=== PATIENT | female | born 1970 | race Hispanic/Latino ===

== ENCOUNTER 2016-03-12 05:40 | Inpatient (IN) | payer OTHER ==
[2016-03-10 12:17] LABS: Basophils % (Auto) 0.6 % (0.0-1.8); Eosinophils % (Auto) 1.9 % (0.0-4.3); Hematocrit 41.8 % (30.3-42.9); Hemoglobin 14.2 gm/dl (10.1-14.3); Mean Corpuscular HGB Conc 34 % (30-34); Mean Corpuscular Hemoglobin 33 pg (28-32); Mean Corpuscular Volume 97 fl (79-97); Platelet Count 153 K/mm3 (140-440); Red Blood Count 4.29 M/mm3 (3.65-5.03); White Blood Count 8.8 K/mm3 (4.5-11.0)
--- NOTE | 2016-03-10 12:29 | Anesthesia Consultation ---
Anesthesia Consult and Med Hx Date of service: 03/10/16 - Airway Anesthetic Teeth Evaluation: Good ROM Head & Neck: Adequate Mental/Hyoid Distance: Adequate Mallampati Class: Class III Intubation Access Assessment: Probably Good - Pulmonary Exam CTA: Yes - Cardiac Exam Cardiac Exam: RRR - Pre-Operative Health Status ASA Pre-Surgery Classification: ASA2 Proposed Anesthetic Plan: General Nerve Block: TAP - Pulmonary Hx Smoking: Yes SOB: Yes (occas SOB) - Cardiovascular System Hx Hypertension: Yes (x 4 mo) - Central Nervous System Hx Psychiatric Problems: No - Hematic Hx Anemia: Yes - Other Systems Hx Alcohol Use: Yes (occas) Hx Cancer: No Hx Obesity: Yes - Additional Comments Anesthesia Medical History Comments: NAC
[2016-03-10 12:31] LABS: Anion Gap 16 mmol/L; Blood Urea Nitrogen 11 mg/dL (7-17); Calcium 9.3 mg/dL (8.4-10.2); Carbon Dioxide 26 mmol/L (22-30); Chloride 95.7 mmol/L (98-107); Glucose 115 mg/dL (65-100); Potassium 3.9 mmol/L (3.6-5.0); Sodium 134 mmol/L (137-145)
--- NOTE | 2016-03-11 22:42 | History and Physical Report ---
History of Present Illness Date of examination: 03/12/16 Chief complaint: They told me I have fibroids History of present illness: Ms Purcell is a 45 year old who presents for definitive therapy of her fibroid uterus. She was told the she had fibroids via ultrasound. She also has complaints of leakage of urine and is interested in having a tvt. 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) Past Surgical History: Other (hysteroscopy) Social history: , smoking Family history: other (muscular dystrophy) Medications and Allergies Allergies Allergy/AdvReac Type Severity Reaction Status Date / Time amoxicillin Allergy Nausea Verified 03/07/16 09:27 ampicillin Allergy Unknown Verified 03/12/16 22:10 Home Medications Medication Instructions Recorded Confirmed Last Taken Type Lisinopril/Hydrochlorothiazide 1 tab PO QDAY 03/07/16 03/12/16 03/12/16 04:45 History [Zestoretic 20-25 mg] Docusate Sodium [Colace] 100 mg PO BID PRN #60 capsule 03/13/16 Unknown Rx Ibuprofen [Motrin 800 MG tab] 800 mg PO Q8HR PRN #40 tablet 03/13/16 Unknown Rx oxyCODONE /ACETAMINOPHEN [Percocet 2 tab PO Q4H PRN #40 tablet 03/13/16 Unknown Rx 5/325 mg] Active Meds: Active Medications Celecoxib (Celebrex) 200 mg PO PREOP NR Stop: 03/12/16 23:01 Famotidine (Pepcid) 20 mg PO PREOP NR Stop: 03/12/16 23:00 Gabapentin (Neurontin) 600 mg PO PREOP NR Stop: 03/12/16 23:01 Sodium Chloride (Nacl 0.9% 1000 Ml) 1,000 mls @ 100 mls/hr IV DIRECT FACUNDO Midazolam HCl (Versed) 2 mg IV PREOP NR Stop: 03/12/16 23:00 Review of Systems - Constitutional weight loss - Genitourinary Genitourinary: pelvic pain, stress incontinence Menstruation: period heavy Exam Vital Signs Temp Pulse Resp BP 97.6 F 84 14 126/76 03/10/16 11:00 03/10/16 11:00 03/10/16 11:00 03/10/16 11:00 - General physical appearance Positive: well developed, well nourished, no distress - Neck Positive: no masses, no bruits, trachea midline, no venous distension - Respiratory Positive: normal expansion, normal respiratory effort, clear to auscultation - Cardiovascular Rhythm: regular Heart Sounds: Present: S1 & S2. Absent: rub, click - Extremities Extremities: no ischemia, No edema - Breasts Breasts: deferred - Abdomen Abdomen: Present: soft, bowel sounds normal. Absent: tender, distended Hernia: none - Genitourinary Female Genitourinary: other (enlarged 16 week size uterus) Results - Labs 03/10/16 11:30 03/10/16 11:30 Assessment and Plan 45 year old female with enlarged fibroid uterus. Patient consented for LUIS ALFREDO and TVT to treat stress incontinence.
[~2016-03-12 05:40] MED LIST: CLEOCIN IV ONE
[2016-03-12] MEDS ORDERED: NACL BACTERIOSTATIC INFILTRATI ONE (06:32)
[2016-03-12] MEDS ORDERED: CLEOCIN 600 MG/50 mL 50 ML IV SCH (06:55)
[2016-03-12] MEDS ORDERED: VERSED IV NR (07:00)
[2016-03-12] MEDS ORDERED: NEURONTIN PO NR (07:00)
[2016-03-12] MEDS ORDERED: PEPCID PO NR (07:00)
[2016-03-12] MEDS ORDERED: NACL 0.9% 1000 ML 1,000 ML IV SCH (07:00)
[2016-03-12] MEDS ORDERED: DILAUDID ONE (07:18)
[2016-03-12] MEDS ORDERED: DIPRIVAN 10 MG/ML IV ONE (07:18)
[2016-03-12] MEDS ORDERED: SUBLIMAZE ONE (07:25)
[2016-03-12] MEDS ORDERED: MARCAINE-EPI 0.5%-1:200,000 INFILTRATI ONE ×2 (07:26)
[2016-03-12] MEDS ORDERED: XYLOCAINE 1% 20 mL ONE (07:29)
[2016-03-12] MEDS ORDERED: ROBINUL ONE ×2 (08:05→09:15)
[2016-03-12] MEDS ORDERED: VERSED ONE (08:25)
[2016-03-12] MEDS ORDERED: ZEMURON IV ONE ×2 (08:45→09:18)
[2016-03-12] MEDS ORDERED: NACL 0.9% IR ONE (08:45)
[2016-03-12] MEDS ORDERED: ZOFRAN ONE (08:45)
[2016-03-12] MEDS ORDERED: DECADRON ONE (08:45)
[2016-03-12] MEDS ORDERED: MARCAINE-EPI 0.25%-1:200,000 INFILTRATI ONE (08:46)
[2016-03-12] MEDS ORDERED: TORADOL ONE (09:15)
[2016-03-12] MEDS ORDERED: BLOXIVERZ ONE (09:15)
[2016-03-12] MEDS ORDERED: WATER FOR IRRIG STERILE IR ONE (10:05)
[2016-03-12] MEDS ORDERED: LACTATED RINGERS 1,000 ML ONE ×2 (10:46)
[2016-03-12] MEDS ORDERED: DILAUDID PCA 6MG/30ML IV ONE (11:19)
[2016-03-12] MEDS ORDERED: D5LR 1,000 ML IV ONE (11:19)
--- NOTE | 2016-03-12 13:13 | Anesthesia Day of Surgery ---
Anesthesia Day of Surgery - Day of Surgery Patient Examined: Yes Patient H&P Reviewed: Yes Patient is NPO: Yes
--- NOTE | 2016-03-12 13:13 | Post Anesthesia Evaluation ---
- Post Anesthesia Evaluation Patient Participated: Yes Airway Patent: Yes Stable Respiratory Function: Yes Nausea/Vomiting: No Temp > 96.8F: Yes Pain Manageable: Yes Adequeate Hydration: Yes Anesthesia Complications: No Block Receding Appropriately: Yes Patient on Ventilator: No
--- NOTE | 2016-03-12 14:08 | Admit Criteria Form ---
Admission Criteria Documentation: AMBULATORY SURGERY EXCEPTION CRITERIA Ambulatory Surgery Exception Criteria ( Place 'X' for any and all applicable criteria): Surgery or procedure performed on ambulatory basis may require inpatient stay for[A] ANY ONE of the following(1)(2)(3)(4)(5)(6)(7)(8)(9): [X] I. A preoperative situation, condition, or finding that warrants inpatient stay as indicated by ANY ONE of the following: [] a) Inpatient care needed because of severity of a disease or condition rather than the surgery (eg, severe cardiac or respiratory disease, severe infection) (15) (16 ) (17) (18) [] b) Emergent procedure (eg, angioplasty for acute ischemia)(19) [X] c) Complex surgical approach or situation as indicated by ANY ONE of the following(3): [X] i) Open approach needed instead of usual endoscopic, transcatheter, or other less invasive procedure [] ii) Difficult approach because of previous operation [] iii) Airway monitoring required after open neck procedures(20)(21) [] iv) Large mass requiring unusually extensive dissection [] v) Additional complicating feature requiring inpatient care (eg, drain management)(22(23): [] d) Major surgery in a pt with high anesthetic risk as indicated by ANY ONE of the following (2)(3)(5)(7)(8): [] i) ASA risk class III or higher (severe systemic disease impairing function) [D] [] ii) Advanced age (eg, older than 85 years)(14)(24) [] iii) Symptomatic heart failure(25) [] iv) Symptomatic asthma or COPD(8)(21) [] v) Morbid obesity with hemodynamic or respiratory problems(20)( 21)(26)(27) [] vi) Obstructive sleep apnea(20)(21) [] vii) Former premature infants who are younger than 60 weeks [] viii) High risk for severe postoperative abnormalities (eg, severe postoperative hypocalcemia after parathyroidectomy for severe hyperparathyroidism)(27)( 28) [] ix) Unstable angina(25) [] e) Drug-related risk requiring inpatient stay as indicated by ANY ONE of the following(5)(10)(14)(32)(33) [] i) Procedure requires discontinuing drugs or other therapy (eg , antiarrhythmic medication, antiseizure medication), which necessitates inpatient observation or treatment.(18)(31) [] ii) Major surgery and high risk drug use as indicated by ANY ONE of the following: [] 1) Active abuse of cocaine or similar drug [] 2) Monoamine oxidase inhibitor use [] 3) Other drug identified as posing risk [] f) Inadequate outpatient care situation as indicated by ANY ONE of the following(5)(10)(14)(32)(33) [] i) Patient lives remote from medical facility and procedure has urgent complication potential, and temporary nearby residence cannot be arranged [] ii) Patient will have postprocedure incapacitation and inadequate assistance at home, or alternative level of care cannot be arranged. [] iii) Patient will have long general anesthesia or procedure side effect resolution time, and competent person to stay with patient on first postoperative night at home or alternative level of care cannot be arranged. []iv) Other inadequate outpatient situation that cannot be handled by other means [] II. A perioperative event, condition, or finding that warrants inpatient stay as indicated by ANY ONE of the following (1)(2)(3): [] a) Inadequate physiologic recovery: cardiovascular, respiratory, or hemodynamic status not normal or near preoperative baseline(18) [] b) Hemodynamic instability [] c) Patient not alert with near normal or baseline mental status [] d) Temperature not normal or as expected and not appropriate for outpatient treatment of condition [] e) Ambulatory or appropriate activity level status not yet achieved post procedure [E](34)(35)(36) [] f) Operative site not appropriate (eg, unexpected or excessive drainage or bleeding) [] g) Postoperative effects not resolved or adequately managed (eg, significant pain or vomiting not appropriate for outpatient or next level of care)(10)(12) [] h) Complicating features requiring inpatient care as indicated by ANY ONE of the following(37): [] i) Severe complications of procedure (eg, bowel injury, airway compromise, vascular injury,severe hemorrhage) [] ii) Extensive (eg, dissection far beyond usual scope of procedure ) or prolonged (eg, 120 minutes beyond usual) surgery needed requiring inpatient postoperative care [] iii) Conversion to an open or complex procedure that requires inpatient care (eg, open vs laparoscopic cholecystectomy, abdominal vs vaginal hysterectomy)(38) [] iv) Comorbid condition or test result identified during or post procedure that requires inpatient care (7) [] v) Malignant hyperthermia(30) [] vi) Other complicating feature requiring inpatient care(22)(23) Inpatient stay may be needed until ALL of the following are present (1)(2)(3)(4) (5)(6)(10)(14)(33)(40): []a) Physiologic recovery: cardiovascular, respiratory, and hemodynamic status normal or near preoperative baseline []b) Hemodynamic stability []c) Patient alert, with near normal or baseline mental status []d) Temperature appropriate: patient afebrile or temperature appropriate for outpt treatment of condition []e) Activity level appropriate: ambulatory or appropriate activity level post procedure []f) Operative site appropriate as indicated by ALL of the following: []i) Site dry or with expected drainage []ii) Any blood noted is as expected for procedure. []g) Postoperative effects resolved or managed as indicated by ALL of the following: []i) Pain management appropriate for outpatient (or next level of) care(10) []ii) Minimal nausea and vomiting: if present, successfully treated with oral medication(12) []iii) Headache, dizziness, or drowsiness (if present) are mild. []h) Voiding status acceptable as indicated by ANY ONE of the following: []i) Voiding spontaneously []ii) No voiding but instructions given for follow-up in 6 to 8 hours []iii) Urinary catheter in place, and instructions given for follow-up []i) Complicating features requiring inpatient care manageable at a lower level of care(37) []j) Comorbid conditions manageable at a lower level of care(37) The original [employer] content created by [employer] has been revised. The portions of the content which have been revised are identified through the use of italic text or in bold, and [facility] [employer] has neither reviewed nor approved the modified material. All other unmodified content is copyright [employer]. Please see references footnoted in the original [employer] edition 2016 Admission Criteria Met: Yes
--- NOTE | 2016-03-12 14:37 | Operative Report ---
PREOPERATIVE DIAGNOSES: 1. Menorrhagia. 2. Fibroid uterus. 3. Stress incontinence. POSTOPERATIVE DIAGNOSES: 1. Menorrhagia. 2. Fibroid uterus. 3. Stress incontinence. PROCEDURES: 1. Total abdominal hysterectomy. 2. Transvaginal tape obturator approach. 3. Cystoscopy. SURGEON: Laura Ramos MD UNDERCOATER: Ambrosio Ramos. ANESTHESIA: General. ESTIMATED BLOOD LOSS: 200 mL. URINE OUTPUT: 200 mL clear at the end of the procedure. IV FLUIDS: 2100 mL. SPECIMENS: Very large fibroid uterus with cervix. COMPLICATIONS: None. DESCRIPTION OF PROCEDURE: The patient was taken to the OR with IV running in place. She was properly identified as herself. She was given general anesthesia without difficulty. She was then placed in dorsal supine position. She was then prepped and draped in normal sterile fashion. Attention was turned to the patient's abdomen. A Pfannenstiel incision was made with the scalpel and carried to the underlying fascia using scalpel and the Bovie. The fascia was incised in the midline and the fascial incision was extended bilaterally using the curved Ortiz scissors. The fascia was then dissected from the underlying rectus muscles using sharp and blunt dissection after being tented up with 2 Gertrude clamps, this was done superiorly and inferiorly. Once the muscles were identified, they were entered into bluntly. There were some mild diastasis of the muscles upon entering into the abdomen. The peritoneal cavity was then entered into bluntly using the surgeon's fingers and the uterus was easily identifiable as it was quite enlarged. The O'Jimbo-O'Sharif retractor was then placed into the incision. The bowel was then packed away with moist laparotomy sponges. The uterus was grasped at each cornua and tented upward. The round ligaments were identified bilaterally. They were grasped with Tate clamps. They were suture ligated and then cauterized using the LigaSure. Following this, the uteroovarian arteries were identified through the broad ligament. They also were cauterized and transected using the LigaSure. This was done bilaterally. The uterine arteries were then skeletonized bilaterally. They were then also cauterized and transected using the LigaSure device. At this point, due to the bulk of the uterus, the decision was made to amputate the upper portion of the uterus and handed off later to get the cervix. This was done using the scalpel and the uterus was handed off. Following this, the cervical stump was grasped with a tenaculum and tented upward. The uterosacral ligaments were then identified. They were cauterized and transected. Following this, we were at the level of the cervix. Two large right angle clamps were placed on each side of the cervix using the Ortiz scissors and the cervix was amputated from the vaginal cuff. Sutures of 0 Vicryl were placed at each angle as well as the olsvky-db-retwu suture in the middle of the vaginal cuff. Once this was done, the abdomen was copiously irrigated with warm normal saline for excellent hemostasis. At this point, all the instruments and laps were removed from the patient's abdomen and pelvis. The muscle reapproximated in the midline using individual sutures of 0 Vicryl. The fascia was closed in a running fashion using 0 Vicryl and the skin was closed in the subcuticular fashion with the assistance by this time, the transition to the second portion of the procedure had taken place. The patient was redraped and rescrubbed vaginally and her legs were placed into lithotomy position. At this point, the TVT was initiated with measuring areas in each thigh bilaterally. They were marked with a marking pen. The weighted speculum was placed in the patient's vagina. The tissue overlying the urethra was injected with 5 mL of 0.25% Marcaine and it was incised. The vagina was dissected off bilaterally to the level of the obturator foramen with the Metzenbaum scissors. This area was also injected with approximately 5 mL of 0.25% Marcaine on a spinal needle. Once at the level of obturator foramen, the guide was placed inside. The TVT was placed into the vagina and extruded on the inner thigh through the previously marked area. The trocar was removed. The mesh was pulled through and the attention was turned to the patient's opposite side. Similarly, the vagina was dissected, the obturator foramen was incised, the guidewire was placed and the TVT again placed into the canal. At this point, the Walter was removed. The bladder was retrograde filled with approximately 300 mL of normal saline. Following this time, the patient was placed in reverse Trendelenburg and pressure was placed on the patient's lower abdomen suprapubically to assess for any leakage with increased abdominal pressure and being noted was no leakage, the decision was made to remove the sheath from the mesh and the area over the urethra was oversewn with running suture of 2-0 Vicryl. The area on the inner thighs were covered with Dermabond. At this point, the catheter was reinserted. There was clear urine coming out. Following completion of the TVT, a cystoscopy was performed to assess the bladder integrity and was found to be completely intact. At this point, all instruments were removed from the patient. She was taken out of lithotomy position. She was awakened and taken to recovery in stable condition. The sponge, lap, needle, and instrument counts were correct x 2. JOB# [id number] PARMINDER/JASIEL RICO
[2016-03-12] MEDS ORDERED: CLEOCIN 600 MG/50 mL 600 MG/50 ML BAG IV SCH ×2 (15:00→23:00)
[2016-03-12] MEDS ORDERED: PERCOCET 5/325 PO PRN (22:22)
[2016-03-12] MEDS ORDERED: PHENERGAN PR PRN (22:23)
[2016-03-12] MEDS ORDERED: PHENERGAN PO PRN (22:23)
[2016-03-12] MEDS ORDERED: ZOFRAN IV PRN (22:24)
[2016-03-12] MEDS ORDERED: DULCOLAX PR PRN (22:26)
[2016-03-12] MEDS: D5LR 1,000 ML IV SCH (22:26)
[2016-03-12] MEDS ORDERED: REGLAN IV PRN (22:26)
[2016-03-12] MEDS ORDERED: MYLICON PO PRN (22:27)
[2016-03-12] MEDS ORDERED: SENOKOT S PO PRN (22:30)
[2016-03-12] MEDS ORDERED: BENADRYL PO PRN (22:31)
[2016-03-12] MEDS ORDERED: BENADRYL IV PRN (22:31)
[2016-03-12] MEDS ORDERED: DILAUDID PCA 6MG/30ML IV SCH (23:00)
[2016-03-13] MEDS: D5LR 1,000 ML IV SCH (05:23)
[2016-03-13] MEDS ORDERED: PERCOCET 5/325 PO PRN (11:00)
--- NOTE | 2016-03-13 12:39 | Progress Note ---
Subjective Date of service: 03/13/16 Interval history: 1st POD after hysterectomy Patient is relatively comfortable. Pain is mostly controlled with pain meds. Ambulated well. No nausea or vomiting. No anesthesia complications Objective - Constitutional Vitals: Vital Signs - 12hr 03/13/16 03/13/16 03/13/16 02:05 04:00 04:10 Temperature 98.0 F Pulse Rate [ 89 Left] Respiratory 18 18 20 Rate Blood Pressure 134/65 [Left Arm] 03/13/16 03/13/16 03/13/16 06:08 07:50 08:00 Temperature 98.5 F Pulse Rate [ 94 H Left] Respiratory 20 18 20 Rate Blood Pressure 138/60 [Left Arm] 03/13/16 10:00 Temperature Pulse Rate [ Left] Respiratory 18 Rate Blood Pressure [Left Arm] - Labs CBC & Chem 7: 03/10/16 11:30 03/10/16 11:30
--- NOTE | 2016-03-13 13:16 | Progress Note ---
Assessment and Plan POD 1 s/p LUIS ALFREDO with TVT. Doing well. Patient is ambulating and voiding well. Patient is passing flatus. Patient is requesting discharge on today. Subjective - Subjective Date of service: 03/13/16 Interval history: Ms Purcell is a 45 year old who presents for definitive therapy of her fibroid uterus. She was told the she had fibroids via ultrasound. She also has complaints of leakage of urine and is interested in having a tvt. Patient reports: appetite normal, voiding normally, pain well controlled, ambulating normally Objective - Vital Signs Latest vital signs: Vital Signs Temp Pulse Resp BP 03/13/16 10:00 18 03/13/16 08:00 20 03/13/16 07:50 98.5 F 94 H 18 138/60 03/13/16 06:08 20 03/13/16 04:10 98.0 F 89 20 134/65 03/13/16 04:00 18 03/13/16 02:05 18 03/13/16 00:28 20 03/13/16 00:00 99.0 F 100 H 18 123/67 03/12/16 22:17 18 03/12/16 20:00 98.8 F 96 H 20 147/66 03/12/16 19:50 20 03/12/16 13:35 98.9 F 90 20 156/73 Intake and Output 03/12/16 03/13/16 03/13/16 22:59 06:59 14:59 Intake Total 1000 1240 1225 Output Total 900 2700 600 Balance 100 -1460 625 Intake: IV 1000 1000 625 D5lr 1,000 ml @ 125 mls/ 500 hr IV DIRECT FACUNDO Rx#: [id number] D5lr 1,000 ml As IV .STK- 1000 1000 MED ONE Rx#:[id number] Right Forearm 125 Oral 240 480 Intake, Free Water 120 Output: Urine 900 2700 600 Indwelling Catheter 900 2700 600 Other: Total, Intake Amount 120 480 Total, Output Amount 900 1200 600 Voiding Method Indwelling Catheter - Exam Breasts: Present: deferred Cardiovascular: Present: Regular rate, Normal S1, Normal S2 Lungs: Present: Clear to auscultation, Normal air movement Abdomen: Present: normal appearance, soft, normal bowel sounds Extremities: Present: normal Deep Tendon Reflex Grade: Normal +2 Incision: Present: normal, dry, intact
--- NOTE | 2016-03-13 13:21 | Discharge Summary ---
Providers - Providers Date of Admission: 03/12/16 05:40 Date of discharge: 03/13/16 Attending physician: MARY JANE ENGLISH Hospitalization Reason for admission: other (fibroids, menorrhagia) Procedure: other (Total Abdominal Hysterectomy with TVT) Procedure details: See op report Incision: normal, dry, intact Discharge diagnosis: other Condition at discharge: Good Disposition: DISCHARGED TO HOME OR SELFCARE Plan - Discharge Medications Prescriptions: Docusate Sodium [Colace] 100 mg PO BID PRN #60 capsule PRN Reason: Constipation Ibuprofen [Motrin 800 MG tab] 800 mg PO Q8HR PRN #40 tablet PRN Reason: Pain oxyCODONE /ACETAMINOPHEN [Percocet 5/325 mg] 2 tab PO Q4H PRN #40 tablet PRN Reason: Pain, Moderate (4-6) - Provider Discharge Summary Activity: routine, no sex for 6 weeks, no heavy lifting 4 weeks, no strenuous exercise Diet: routine Instructions: routine Additional instructions: [] Smoking cessation referral if applicable(refer to patient education folder for contact #) [] Refer to [facility] Booklet Call your doctor immediately for: * Fever > 100.5 * Heavy vaginal bleeding ( >1 pad per hour) * Severe persistent headache * Shortness of breath * Reddened, hot, painful area to leg or breast * Drainage or odor from incision. * Keep incision clean and dry at all times and follow doctor's instructions regarding bathing/showering - Follow up plan Follow up: MARY JANE ENGLISH MD [Staff Physician] - 14 Days
[2016-03-13 13:26] VITALS: BP 136/60
--- NOTE | 2016-03-18 08:11 | Query- Abnormal Electrolytes ---
Malachi Carrasco Date:_03/18/16 Line Assembler/CDS:Sheeba/ Juan Kearney Phone#:_[phone] Exercise your independent professional judgment when responding to this query. Questions asked do not imply a particular answer is desired or expected. We greatly appreciate your clarification on this issue. Clinical Documentation States: 45 Y/O who presents for definitive therapy of her fibroid uterus. She also complains of leakage of urine and is interested in having a tvt. Clinical Findings Show: Sodium: 134 on 03/10/16 Can you please clarify whether you mean? [ ] Hyponatremia [ ] Hypokalemia [ ] Hypocalcemia [ ] Hypomagnesemia [ ] Hypernatremia [ ] Hyperkalemia [ ] Hypercalcemia [ ] Hypermagnesemia [ ] Sodium deficiency [ ] Potassium deficiency [ ] Hypochloremia [ ] Sodium excess [ ] Potassium excess [ ] Hyperchloremia [ ] Sodium overload [ ] Potassium overload [ ] Hypophosphatemia [ ] Hyperphosphatemia Acidosis; [ ] Respiratory [ ] Metabolic Alkalosis; [ ] Respiratory [ ] Metabolic [ ] Other: [ ] Comment/Explanation: Present on Admission: [x ] Yes (Y) [ ] Clinically undeterminable (W) [ ]No(N) Please also document response in your Progress Notes and/or Discharge Summary and indicate if the condition was present on admission. JACKY
== END 2016-03-13 14:00 | disposition home or self-care (01) | DRG 742 ==
LOC: 3A 05:40 → OB 15:02
PROVIDERS: ADMIT Obstetrics & Gynecology; ATTEND Obstetrics & Gynecology
PROC: 0UT90ZZ Resection of Uterus, Open Approach (ICD-10-PCS; principal; 2016-03-12)
PROC: 0UTC0ZZ Resection of Cervix, Open Approach (ICD-10-PCS; 2016-03-12)
PROC: 0TJB8ZZ Inspection of Bladder, Via Natural or Artificial Opening Endoscopic (ICD-10-PCS; 2016-03-12)
PROC: 0TSC0ZZ Reposition Bladder Neck, Open Approach (ICD-10-PCS; 2016-03-12)
DX: D25.9 Leiomyoma of uterus, unspecified (principal); E87.1 Hypo-osmolality and hyponatremia; N92.0 Excessive and frequent menstruation with regular cycle; N39.3 Stress incontinence (female) (male); I10 Essential (primary) hypertension; F17.200 Nicotine dependence, unspecified, uncomplicated; E66.9 Obesity, unspecified; Z68.37 Body mass index [BMI] 37.0-37.9, adult; Z88.1 Allergy status to other antibiotic agents
CPT/HCPCS: 36415; 64450; 80048; 84703; 85025; 86850; 86900; 86901; 88307; A4217; C1771; J1100; J1170; J1885; J2250; J2405; J2704; J2710; J3010; J7030; J7120; J7121